=== PATIENT | male | born 1935 | race Caucasian/White ===

== ENCOUNTER 2017-10-20 10:35 | Outpatient (CLI) | payer MEDICARE ==
--- NOTE | 2017-10-20 12:01 | ULT ---
FOCUS ULTRASOUND OF THE RIGHT NECK: 10/20/2017 HISTORY: Lymphadenitis. COMPARISON: None. TECHNIQUE: Multiplanar polanco-scale sonographic imaging of the area of concern obtained in the posterior neck and in the right neck, inferior to the mandible. FINDINGS: There is a nonspecific, heterogeneously hypoechoic solid structure inferior to the mandible, me asuring in the 1.6 x 1.8 cm range. Just adjacent/inferior to this is a 1.6 x 1, oval, solid, hypoech oic structure, suggesting a mildly enlarged node. Additional images demonstrate additional smaller n odes. IMPRESSION: Heterogeneous hypoechoic mass inferior to the mandible with adjacent lymphadenopathy. This mass coul d represent an abnormal submandibular gland. Additional soft tissue mass lesions are possible. Eval uation of this abnormality is suboptimal on focused ultrasound. Recommend CT examination of the neck with intravenous contrast for full assessment. Malignancy is a possibility. CODE T POS: TRAC[facility]
== END 2017-10-20 10:36 | disposition home or self-care (01) ==
LOC: SCSULT 10:35
PROVIDERS: ATTEND Nurse Practitioner Family
DX: I88.9 Nonspecific lymphadenitis, unspecified (principal)
CPT/HCPCS: 76536

== ENCOUNTER 2017-10-25 16:00 | Outpatient (CLI) | payer MEDICARE ==
--- NOTE | 2017-10-25 17:56 | CT ---
CT NECK WITH CONTRAST: 10/25/17 HISTORY: 82-year-old male with "R22.1 - localized swelling, mass and lump, neck." No improvement after one round of antibiotics, Augmentin. FINDINGS: In the superficial lobe of the right parotid gland, more specifically at the right parotid tail, ther e is a solid mass measuring approximately 2 x 1.5 x 2.5 cm. It has moderately low attenuation central component which is suspicious for necrosis. Slightly inferior to that, external to the parotid gland there is a 1.4 x 1.2 x 1.2 cm necrotic lymph node which is located lateral to the right sternocleidomastoid muscle, and therefore is not a level II lymph node. There are scattered shotty nonspecific lymph nodes that are less than 0.5 cm in size bilaterally at b ilateral levels III and IV. There is one particular right retrojugular node that is at the boundary between level III and level I V, which is larger than the others, measuring 0.8 x 0.6 x 1 cm. This lymph node is indeterminate. It is not necrotic. There is heavy atherosclerotic calcification of the bilateral proximal internal carotid arteries, inc luding carotid bulbs. This results in significant stenosis at the origin of the left internal carotid , incompletely assessed. Left parotid gland is unremarkable. The bilateral submandibular, parapharyng eal, tap puller, pharyngeal mucosal, retropharyngeal, and posterior cervical, spaces, demonstrate no obvious major pathology. No obvious thyroid mass. Larynx is grossly unremarkable. IMPRESSION: 1. Solid, necrotic appearing right intraparotid mass at the tail of the parotid gland, suspiciou s for neoplasm. This could either be a primary parotid malignancy or a necrotic metastatic intraparot id lymph node. 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 2. Necrotic metastatic lymph node external and inferior to the right parotid gland. 3. Bilateral carotid atherosclerosis, with left proximal internal carotid stenosis. Code T POS: TRACY
== END 2017-10-25 16:01 | disposition home or self-care (01) ==
LOC: SCSCT 16:00
PROVIDERS: ATTEND Otolaryngology Plastic Surgery within the Head & Neck
DX: R22.1 Localized swelling, mass and lump, neck (principal); C77.0 Secondary and unspecified malignant neoplasm of lymph nodes of head, face and neck; C80.1 Malignant (primary) neoplasm, unspecified; I65.23 Occlusion and stenosis of bilateral carotid arteries
CPT/HCPCS: 70491; 82565

== ENCOUNTER 2017-11-14 12:49 | Outpatient (CLI) | payer MEDICARE ==
--- NOTE | 2017-11-14 16:42 | PET ---
RADIONUCLIDE PET SCAN WITH CT ATTENUATION CORRECTION: HISTORY: Right parotid cancer, initial staging. FINDINGS: Physiologic uptake of radiotracer is present throughout the enteric system and along each urinary tra ct. The lobular mass associated with the tail of the right parotid gland shows increased radiotracer uptake with a maximum SUV of 11.0. The lymph node immediately inferior and medial to the right paroti d tail shows increased uptake with a maximum SUV Q. Clear of 6.8. No other areas of abnormal radiotra cer uptake are apparent. Nondiagnostic CT attenuation correction images show calcification in the arterial structures. Stones within the dependent portion of the gallbladder lumen. Degenerative changes lumbar spine. Diverticula of the colon without adjacent inflammation. IMPRESSION: 1. Hypermetabolic right parotid tail mass with hypermetabolic adjacent right cervical lymph node. No distant metastatic disease is apparent. 2. Atherosclerosis. 3. Cholelithiasis. 4. Diverticulosis POS: [facility]
== END 2017-11-14 12:50 | disposition home or self-care (01) ==
LOC: PET 12:49
PROVIDERS: ATTEND Internal Medicine Hematology & Oncology
DX: C76.0 Malignant neoplasm of head, face and neck (principal); K11.8 Other diseases of salivary glands; I70.90 Unspecified atherosclerosis; K57.90 Diverticulosis of intestine, part unspecified, without perforation or abscess without bleeding; K80.20 Calculus of gallbladder without cholecystitis without obstruction
CPT/HCPCS: 78815; A9552

== ENCOUNTER 2018-02-21 09:02 | Outpatient (CLI) | payer MEDICARE ==
--- NOTE | 2018-02-21 11:03 | CT ---
CT SOFT TISSUE NECK: History: Squamous cell carcinoma of neck. Restaging. Technique: Contrast enhanced CT imaging of the soft tissue neck obtained. Comparison: 10-25-17 FINDINGS: There is marked reduction of the right parotid mass. Previously this lesion measured approximately 1. 4 x 2.0 cm. Now it is decreased in size measuring 6.5 x 11.9 mm. No definite evidence of lymphadenopathy is seen otherwise. No other mass lesions seen. Bilateral distal common carotid and internal carotid artery vascular calcifications are seen. Calcifications also seen in the coronary and mitral annulus. IMPRESSION: No evidence of newly developed lesions. Right parotid lesion is significantly decreased in size when compared to previous comparison exam. POS: [facility]
[2018-02-21] MEDS ORDERED: Iopamidol 370 76% 100 ML VIAL ONE (11:07)
== END 2018-02-21 09:03 | disposition home or self-care (01) ==
LOC: CT 09:02
PROVIDERS: ATTEND Radiology Radiation Oncology
DX: C77.0 Secondary and unspecified malignant neoplasm of lymph nodes of head, face and neck (principal)
CPT/HCPCS: 70491; 82565

== ENCOUNTER 2018-05-18 09:23 | Outpatient (CLI) | payer MEDICARE ==
[~2018-05-18 09:23] MED LIST: Iopamidol 370 76% 100 ML VIAL ONE
--- NOTE | 2018-05-18 12:24 | CT ---
CT NECK SOFT TISSUES CONTRAST ENHANCED: HISTORY: Swelling, anterior neck, from chin to clavicle, for three days. The patient has a history of cancer of the neck, below her right jaw. COMPARISON: 02/21/2018 TECHNIQUE: Contrast enhanced CT images of the soft tissue neck obtained. RADIOGRAPHIC FINDINGS: There is some atrophy of the right parotid gland. No definite evidence of right parotid mass is seen . Post surgical changes seen at the inferior aspect of the right parotid gland. The left parotid gl and is unremarkable. No definite evidence of lymphadenopathy is seen. Atherosclerotic calcification is seen at the distal aspect of both common carotid arteries, extending into the proximal ICA. There is approximately 80% distal left CCA and proximal left ICA disease. M oderate right distal CCA and proximal right ICA stenosis is also seen. IMPRESSION: 1. Bilateral common and proximal internal carotid artery carotid disease, worse on the left than on the right. 2. Post surgical changes seen in the right parotid gland. POS: TRACY
== END 2018-05-18 09:24 | disposition home or self-care (01) ==
LOC: SCSCT 09:23
PROVIDERS: ATTEND Otolaryngology Plastic Surgery within the Head & Neck
DX: R22.1 Localized swelling, mass and lump, neck (principal); I77.9 Disorder of arteries and arterioles, unspecified
CPT/HCPCS: 70491; 82565

== ENCOUNTER 2019-06-11 05:50 | Day surgery (SDC) | payer MEDICARE ==
--- NOTE | 2019-06-11 09:20 | OP ---
DATE OF PROCEDURE: 06/11/2019 REFERRING PHYSICIAN: Fabrice Denton MD [employer] COACH SURGEON: None. PROCEDURE PERFORMED: Esophagogastroduodenoscopy with biopsies and esophageal dilation. INDICATIONS: 1. Dysphagia, chronic, nonprogressive, in the context of prior radiation therapy for neck cancer. 2. Epigastric pain, episodic. MEDICATIONS: See Anesthesia record. FINDINGS: After discussion of the risks, benefits, and alternatives of the procedure, informed consent was obtained and witnessed. Pre-endoscopic cardiopulmonary examination was satisfactory. Time-out was performed before sedation was achieved. Sedation was achieved with Anesthesia assistance in the endoscopy unit. A Pentax adult upper endoscope was placed into the oropharynx and passed through the cricopharyngeus under direct visualization. The esophageal mucosa appeared normal throughout with a normal-appearing Z-line. There was no endoscopic abnormality to explain the patient's dysphagia symptoms. The endoscope was advanced into the stomach. Forward and retroflexed views of the entire gastric mucosa were obtained. There was moderate erosive gastritis in a patchy distribution involving the greater curvature of the gastric body as well as the gastric antrum. There are multiple small shallow erosions including one larger erosion with some heme staining, but no active bleeding. Biopsies were obtained from the gastric antrum and body to rule out H pylori infection. The endoscope was advanced through the pylorus and into the first and second portions of the duodenum, which were normal. At this point, the endoscope was withdrawn back into the stomach. A Savary spring tipped guidewire was passed through the accessory port with the tip placed in the antrum. The endoscope was removed leaving the guidewire in place. A single dilation was performed using an 18-mm Savary dilator with mild resistance. The dilator and guidewire were then both removed. The esophagus was then reintubated for reexamination and there was no mucosal disruption visualized. The endoscope was then completely withdrawn and the patient allowed to recover. The patient tolerated the procedure well. There were no immediate postprocedure complications. IMPRESSION: 1. Moderate erosive gastritis, biopsied to rule out H pylori. 2. Normal esophagus, with no endoscopic abnormality to explain the patient's dysphagia. Single Savary dilation performed to 18 mm empirically. RECOMMENDATION: 1. Follow up pathology and gastric biopsies. 2. Pantoprazole 40 mg twice daily for the next two months. 3. Follow up in the GI clinic in 6-8 weeks. 4. If H pylori is present, treat with triple therapy and confirm eradication. Job ID: [id number]
[2019-06-11] MEDS ORDERED: PROPOFOL 200 MG/20 ML VIAL ONE (14:35)
[2019-06-11] MEDS ORDERED: Lidocaine 1% PF 5 ML VIAL ONE (14:35)
== END 2019-06-11 09:50 | disposition home or self-care (01) ==
LOC: SDC 05:50
PROVIDERS: ATTEND Internal Medicine
PROC: 0DB68ZX Excision of Stomach, Via Natural or Artificial Opening Endoscopic, Diagnostic (ICD-10-PCS; principal; 2019-06-11)
PROC: 0D758ZZ Dilation of Esophagus, Via Natural or Artificial Opening Endoscopic (ICD-10-PCS; 2019-06-11)
DX: K29.50 Unspecified chronic gastritis without bleeding (principal); R13.10 Dysphagia, unspecified; Z79.82 Long term (current) use of aspirin; Z79.899 Other long term (current) drug therapy
CPT/HCPCS: 88305; 88312; J2001; J2704

== ENCOUNTER 2019-09-28 09:45 | Outpatient (CLI) | payer MEDICARE ==
--- NOTE | 2019-09-28 12:13 | PET ---
Radionucleotide PET with CT attenuation correction HISTORY: Head and neck cancer. C14.8. Initial staging. FINDINGS: Physiologic uptake of radiotracer throughout the enteric system and along each urinary trac t. Hypermetabolic activity associated with the large left parotid gland mass shows max SUV 16.4. No abnormal uptake is seen along the cervical lymph node chains, mediastinum, or other area of likely metastatic involvement. There is a small focus of markedly increased activity at the rectosigmoid junction of the lower colon , max SUV 19.4. A mass at this location is not well delineated on CT imaging. Nondiagnostic CT attenuation correction images show scattered areas of parenchymal lung scarring, pilo cified granulomata, and emphysematous change. Hyperdense stones are present within the dependent portion of the gallbladder lumen. Prominent calcification throughout the arterial structures. Diverticula arise from the colon without adjacent inflammation. Bilateral pars interarticularis defects at the lumbosacral junction of the spine. IMPRESSION : Hypermetabolic left parotid neoplasm. No evidence of metastatic disease. Small markedly hypermetabolic focus associated with the rectosigmoid junction. Please correlate with endoscopic evaluation. Cholelithiasis. Prominent atherosclerosis. Diverticulosis.
== END 2019-09-28 09:46 | disposition home or self-care (01) ==
LOC: PET 09:45
PROVIDERS: ATTEND Internal Medicine Hematology & Oncology
DX: C07 Malignant neoplasm of parotid gland (principal); C14.8 Malignant neoplasm of overlapping sites of lip, oral cavity and pharynx; R94.8 Abnormal results of function studies of other organs and systems; K80.20 Calculus of gallbladder without cholecystitis without obstruction; K57.30 Diverticulosis of large intestine without perforation or abscess without bleeding; I70.90 Unspecified atherosclerosis
CPT/HCPCS: 78815; A9552

== ENCOUNTER 2019-10-15 12:19 | Outpatient (CLI) | payer MEDICARE, OTHER ==
--- NOTE | 2019-10-15 12:47 | RAD ---
EXAM: Chest 2 views: HISTORY: Preoperative radiograph COMPARISON: 10/03/2016 FINDINGS: There is a normal-sized cardiomediastinal silhouette. Atherosclerotic calcifications are seen in the aorta. There is no evidence of consolidation, mass, or pleural effusion. The bones are unremarkable. IMPRESSION: No evidence of acute cardiopulmonary disease
[2019-10-15 14:16] LABS: Hemoglobin 13.6 g/dL (14.0-18.0); Mean Corpuscular HGB CONC 32.5 g/dL (32.0-36.0); Mean Corpuscular Volume 98.5 fL (78.0-98.0); Mean Platelet Volume 7.6 fL (7.4-10.4); Platelet Count 159 thou/uL (130-400); RBC Distribution Width 12.6 % (11.5-14.5); Red Blood Cell (RBC) Count 4.24 mill/uL (4.70-6.10); White Blood Cell (WBC) Count 18.6 thou/uL (4.8-10.8)
[2019-10-15 14:36] LABS: Anion Gap 13 mmol/L (10-20); BUN (Urea Nitrogen) 26 mg/dL (8.4-25.7); Calc. Creatinine Clearance 0 mL/min (70-130); Calcium 8.9 mg/dL (7.8-10.44); Carbon Dioxide 25 mmol/L (23-31); Chloride 103 mmol/L (98-107); Estimated GFR-MDRD 57; Glucose 95 mg/dL (83-110); Sodium 137 mmol/L (136-145)
[2019-10-15 14:51] LABS: Band 19 % (5-11); Dohle Bodies SLIGHT; Eosinophils 5 % (0-10); Lymphocytes 3 % (21-51); MDiff Complete? YES; Neutrophil 72 % (42-75); Platelet Morphology Comment Appears Adequate; RBC Morphology Normal; Toxic Granulation SLIGHT
[2019-10-16 13:13] LABS: SARS-CoV-2 MS2 Positive; SARS-CoV-2 N Gene Negative; SARS-CoV-2 S Gene Negative; SARS-CoV-2 orf1ab Negative
== END 2019-10-15 12:20 | disposition home or self-care (01) ==
LOC: LABBT 12:19
PROVIDERS: ATTEND Specialist
DX: Z01.818 Encounter for other preprocedural examination (principal); Z11.59 Encounter for screening for other viral diseases; C80.1 Malignant (primary) neoplasm, unspecified
CPT/HCPCS: 71046; 80048; 85025; U0003; 87635

== ENCOUNTER 2019-10-18 06:04 | Day surgery (SDC) | payer MEDICARE ==
[2019-10-15 12:45] VITALS: BMI 29.9
[2019-10-18] MEDS ORDERED: Acetaminophen 500 MG TAB ONE (06:15)
[2019-10-18] MEDS ORDERED: Sodium Chloride 0.9% 30 ML ONE (06:48)
[2019-10-18] MEDS ORDERED: Bupivacaine 0.25% HCL 30 ML VIAL ONE (06:48)
[2019-10-18] MEDS ORDERED: Lidocaine 1% w/Epinephrine 1:100K 20 ML VIAL ONE (06:48)
[2019-10-18] MEDS ORDERED: Ketorolac Tromethamine 30 MG/ML VIAL ONE (06:56)
[2019-10-18] MEDS ORDERED: Fentanyl 100 MCG/2 ML VIAL ONE (07:00)
[2019-10-18] MEDS ORDERED: Midazolam HCl 2 mg/2 ml Vial ONE (07:00)
[2019-10-18] MEDS ORDERED: Propofol 500 MG/50 ML VIAL ONE (07:04)
--- NOTE | 2019-10-18 10:05 | RAD ---
PORTABLE CHEST 1 VIEW: DATE: 10/18/2019. TIME: 9:31 AM. HISTORY: Post MediPort placement, head and neck cancer. COMPARISON: 10/15/2019. FINDINGS: There has been interval placement of a right subclavian Port-A-Cath with tip I the projection of the SVC. No pneumothorax is seen. Chronic parenchymal changes are again noted. The liriano size is stable . The aorta is tortuous. IMPRESSION: No acute process. POS: [facility]
--- NOTE | 2019-10-18 11:09 | OP ---
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 OPERATION PERFORMED: Placement of right subclavian standard-sized power compatible MediPort. ANESTHESIA: Total intravenous anesthesia with local using a mixture of 1% lidocaine with epinephrine and 0.25% Marcaine. INDICATIONS: The patient is an 84-year-old white male. He presents with a malignancy of the head and neck. He has already undergone one round of chemotherapy. MediPort is requested for chemotherapy administration. DESCRIPTION OF OPERATION: Informed consent was obtained. The patient was taken to the operating room where total intravenous anesthesia was obtained with the patient in supine position. Right periclavicular area was prepped with ChloraPrep and draped in sterile fashion. Local anesthetic was infiltrated and a large-gauge needle was passed under the clavicle in the subclavian vein. Guidewire was passed through the needle and fluoroscopically confirmed to enter the superior vena cava. Additional local anesthetic was infiltrated and transverse incision was created based on needle insertion site. A subcutaneous pocket was dissected inferiorly. Introducer dilator was passed over the guidewire under fluoroscopic guidance. The guidewire and dilator were removed, and the catheter was passed through the introducer. The tip of the catheter was positioned at the atriocaval junction and the catheter was trimmed to the appropriate length and secured to the locking hub of the MediPort. The port was then placed in the subcutaneous pocket where it was secured to the pectoral fascia with 2 interrupted sutures of 3-0 Prolene. The incision was then closed in layers with 3-0 and 4-0 Monocryl. Additional local anesthetic was infiltrated. The port was cannulated with a Church needle and it aspirated blood freely and was flushed with heparinized saline. Dermabond was placed externally on the skin incision. There were no complications. Blood loss was negligible. The patient tolerated the procedure well and was taken to recovery room in stable condition. FINDINGS: I selected a standard-sized MediPort secondary to his body habitus. This was placed in the right subclavian vein uneventfully. Fluoroscopy was used throughout the procedure. There were no complications. The patient tolerated the procedure well. Job ID: [id number]
[2019-10-18] MEDS ORDERED: Ondansetron PF 4 MG/2 ML Vial ONE (14:57)
[2019-10-18] MEDS ORDERED: PROPOFOL 200 MG/20 ML VIAL ONE (14:57)
[2019-10-18] MEDS ORDERED: EPHEDRINE 25 MG/5 ML SYRINGE ONE (14:57)
--- NOTE | 2019-10-18 18:05 | EKG ---
Test Reason : PREOP Blood Pressure : / mmHG Vent. Rate : 065 BPM Atrial Rate : 065 BPM P-R Int : 304 ms QRS Dur : 086 ms QT Int : 414 ms P-R-T Axes : -02 -27 013 degrees QTc Int : 430 ms Sinus rhythm with 1st degree A-V block Minimal voltage criteria for LVH, may be normal variant Borderline ECG No previous ECGs available Confirmed by DR. Louise SENIOR ([id number]) on 10/18/2019 6:05:13 PM Referred By: FREEMAN Confirmed By:DR. Louise SENIOR
== END 2019-10-18 10:50 | disposition home or self-care (01) ==
LOC: SDC 06:04
PROVIDERS: ATTEND Specialist
PROC: 02HV33Z Insertion of Infusion Device into Superior Vena Cava, Percutaneous Approach (ICD-10-PCS; principal; 2019-10-18)
PROC: B518ZZA Fluoroscopy of Superior Vena Cava, Guidance (ICD-10-PCS; 2019-10-18)
PROC: 0JH60WZ Insertion of Totally Implantable Vascular Access Device into Chest Subcutaneous Tissue and Fascia, Open Approach (ICD-10-PCS; 2019-10-18)
DX: C07 Malignant neoplasm of parotid gland (principal); E78.5 Hyperlipidemia, unspecified; M19.90 Unspecified osteoarthritis, unspecified site; I10 Essential (primary) hypertension; E03.9 Hypothyroidism, unspecified; G47.33 Obstructive sleep apnea (adult) (pediatric); Z79.899 Other long term (current) drug therapy
CPT/HCPCS: 36561; 71045; 93005; C1788; 93010; J0690; J1642; J1885; J2250; J2405; J2704; J3010; S0020

== ENCOUNTER 2019-11-02 05:58 | Outpatient (CLI) | payer MEDICARE, OTHER ==
[2019-11-03 12:15] LABS: SARS-CoV-2 MS2 Positive; SARS-CoV-2 N Gene Negative; SARS-CoV-2 S Gene Negative; SARS-CoV-2 orf1ab Negative
== END 2019-11-02 05:59 | disposition home or self-care (01) ==
LOC: LABBT 05:58
PROVIDERS: ATTEND Internal Medicine
DX: Z01.812 Encounter for preprocedural laboratory examination (principal); Z11.59 Encounter for screening for other viral diseases; Z12.11 Encounter for screening for malignant neoplasm of colon; R93.5 Abnormal findings on diagnostic imaging of other abdominal regions, including retroperitoneum; Z86.010 Personal history of colon polyps
CPT/HCPCS: 87635; U0003

== ENCOUNTER 2019-11-06 07:45 | Day surgery (SDC) | payer MEDICARE ==
[2019-10-30 11:12] VITALS: BMI 32.1
--- NOTE | 2019-11-06 10:44 | OP ---
DATE OF PROCEDURE: 11/06/2019 SOCIAL WORK MSW SURGEON: None. PROCEDURE PERFORMED: Colonoscopy with snare polypectomy. INDICATIONS: 1. Abnormal PET scan, demonstrating a hypermetabolic focus at the rectosigmoid junction. 2. Personal history of colon polyps, with last colonoscopy in 2011. MEDICATIONS: See Anesthesia record. FINDINGS: After discussion of the risks, benefits, and alternatives of the procedure, informed consent was obtained and witnessed. Pre-endoscopic cardiopulmonary examination was satisfactory. Time-out was performed before sedation was achieved. Sedation was achieved with Anesthesia assistance in the endoscopy unit. Digital rectal exam was performed, which was unremarkable except for a few small external hemorrhoidal skin tags. A Pentax adult colonoscope was inserted into the anus and passed forward to the cecum in the usual fashion. The cecal base was identified by the appendiceal orifice as well as the ileocecal valve. The terminal ileum was not intubated. The colonoscope was slowly withdrawn in a gradual and circumferential manner with careful examination of the entire colonic mucosa. The quality of the prep was good. There was diverticulosis scattered throughout the left side of the colon with no evidence of any mucosal inflammation. At the rectosigmoid junction, there was a single semipedunculated polyp measuring about 4 mm in diameter. This was completely removed with hot snare and retrieved for pathology. Retroflexion in the rectum demonstrated internal hemorrhoids. The colonoscopy was otherwise unremarkable. The colonoscope was completely withdrawn and the patient allowed to recover. The patient tolerated the procedure well. There were no immediate postprocedure complications. IMPRESSION: 1. A 4 mm semipedunculated polyp in the rectosigmoid colon, completely removed with hot snare and retrieved for pathology. 2. Left-sided colonic diverticulosis. 3. Internal hemorrhoids. 4. Otherwise normal colonoscopy to the cecum. RECOMMENDATIONS: 1. Follow up pathology on the rectosigmoid polyp. Expect this will be benign. 2. No plan for repeat colonoscopy, due to the patient's age. 3. The patient can follow up with me in the GI Clinic as needed. Job ID: [id number]
[2019-11-06] MEDS ORDERED: PROPOFOL 200 MG/20 ML VIAL ONE (12:34)
== END 2019-11-06 11:25 | disposition home or self-care (01) ==
LOC: SDC 07:45
PROVIDERS: ATTEND Internal Medicine
PROC: 0DBN8ZX Excision of Sigmoid Colon, Via Natural or Artificial Opening Endoscopic, Diagnostic (ICD-10-PCS; principal; 2019-11-06)
DX: D12.7 Benign neoplasm of rectosigmoid junction (principal); K57.30 Diverticulosis of large intestine without perforation or abscess without bleeding; K64.4 Residual hemorrhoidal skin tags; K64.8 Other hemorrhoids; G47.33 Obstructive sleep apnea (adult) (pediatric); M19.90 Unspecified osteoarthritis, unspecified site; E07.9 Disorder of thyroid, unspecified; Z86.010 Personal history of colon polyps; Z79.82 Long term (current) use of aspirin; Z79.899 Other long term (current) drug therapy
CPT/HCPCS: 88305; J2704

== ENCOUNTER 2019-11-08 12:38 | Emergency (ER) | payer MEDICARE ==
--- NOTE | 2019-11-08 14:40 | CT ---
Exam: Lumbar spine CT without contrast HISTORY: Parotid gland cancer. Unknown metastases. Compression fracture at L3. COMPARISON: None Correlation: Pet imaging 09/28/2019 FINDINGS: Diffuse bone demineralization. Adequate attenuation the paraspinal muscles, alimentary canal and visualized solid organs. Diverticul osis, without evidence of diverticulitis Bilateral pars defects at L5 with associated 5.8 mm of anterolisthesis Incompletely evaluated severe compression fracture at T11. Moderate to severe compression fracture at L1 without retropulsion. Acute moderate compression fracture at L3 with minimal perivertebral posttraumatic changes. Vacuum disc phenomenon at L2 to-L3. Limited evaluation the contents of the central spinal canal and neural foramina due to technique T12-L1: No significant central canal stenosis or significant neural foraminal narrowing L1-L2: Broad-based disc bulge. Mild ligament flavum thickening and facet hypertrophy. Mild central ca nal stenosis. Mild bilateral neural foraminal narrowing L2-L3: Broad-based disc bulge, ligament flavum thickening and facet hypertrophy. Moderate to severe c anal stenosis. Moderate to severe right and moderate left neural foraminal narrowing L3-L4: Broad-based disc bulge, ligament flavum thickening and facet hypertrophy result in mild centra l canal stenosis. Mild bilateral neural foraminal narrowing L1 4-L5: Broad-based disc bulge, ligament flavum thickening and facet hypertrophy result in moderate central canal stenosis. Moderate bilateral neural foraminal narrowing L5-S1: Severe loss of disc space height. Endplate sclerosis. No significant central canal stenosis. M ild to moderate bilateral neural foraminal narrowing IMPRESSION: 1. Multilevel degenerative changes of the lumbar spine as described above. 2. Diffuse bony mineralization. Multiple compression fractures at T11, L1 and L3. Osteoporotic fractu res are favored. The L3 fracture is noted on PET imaging from 09/28/2019, without significant change 3. Grade 1 anterolisthesis of L5 upon S1. Associated bilateral pars defects (spondylolysis) Transcribed Date/Time: 11/08/2019 3:08 PM
== END 2019-11-08 14:55 | disposition home or self-care (01) ==
LOC: ERS 12:38
DX: M48.56XA Collapsed vertebra, not elsewhere classified, lumbar region, initial encounter for fracture (principal); E78.5 Hyperlipidemia, unspecified; E03.9 Hypothyroidism, unspecified; Z79.899 Other long term (current) drug therapy
CPT/HCPCS: 72131

== ENCOUNTER 2019-11-22 07:25 | Outpatient (CLI) | payer MEDICARE ==
--- NOTE | 2019-11-22 10:45 | PET ---
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 C07, C14.8. Evaluate treatment response. COMPARISON: 09/28/2019 TECHNIQUE: IV injection of F-18 fluorodeoxyglucose (FDG) dose: 10.3 mCi. PET scan and attenuation correction CT performed from skull base to proximal thighs. PET scan and attenuation correction CT thinner slices performed through head and neck. FINDINGS: SUV (standard uptake values) numbers given are maximum SUVs. QCLR used. The previously demonstrated approximately 2.5 x 2 x 2 cm mass straddling the superficial lobe of the left parotid gland and the subcutaneous fat in the preauricular region, has significantly decreased in size. On the nondiagnostic attenuation correction CT, there is a small focal 1 x 0.7 cm residual d ensity in that location now which is just under the threshold for significant hypermetabolic activity, currently 2.3 SUV. There is no hypermetabolic cervical lymphadenopathy. Contralateral right parotid gland is absent. Right subclavian implantable vascular access port distal tip at SVC. Chronic interstitial lung disease identified diffusely bilaterally. Several calcified gallstones in proximal gallbladder body. No signs of acute cholecystitis. Extensive descending and sigmoid colonic diverticulosis without diverticulitis. The previously seen small focus of increased uptake at the rectosigmoid junction, is no longer presen t. No suspicious hypermetabolic activity within the chest, abdomen, or pelvis. Bilateral gynecomastia. IMPRESSION: 1) dramatic interval shrinkage of mass at anterior, preauricular portion of superficial lobe of left parotid gland, no longer hypermetabolic. 2.) No evidence of metastatic disease. 3) chronic interstitial lung disease. 4) colonic diverticulosis without diverticulitis. 5) interval resolution of the previously noted FDG-avid focus at rectosigmoid junction. 6) cholelithiasis.
== END 2019-11-22 07:26 | disposition home or self-care (01) ==
LOC: PET 07:25
PROVIDERS: ATTEND Internal Medicine Hematology & Oncology
DX: C76.0 Malignant neoplasm of head, face and neck (principal); K11.8 Other diseases of salivary glands; J84.9 Interstitial pulmonary disease, unspecified; K57.30 Diverticulosis of large intestine without perforation or abscess without bleeding; K80.20 Calculus of gallbladder without cholecystitis without obstruction
CPT/HCPCS: 78815; A9552

== ENCOUNTER 2020-04-02 08:44 | Outpatient (CLI) | payer MEDICARE ==
--- NOTE | 2020-04-02 09:13 | RAD ---
XR Knee Rt 3 View HISTORY: Right knee pain FINDINGS: No fracture or dislocation is identified. Degenerative changes are seen manifested by osteophyte form ation and joint space narrowing, most prominent in the medial tibiofemoral compartment. Vascular calcifications are present.
[2020-04-02 11:49] LABS: ALT (SGPT) 11 U/L (8-55); AST (SGOT) 18 U/L (5-34); Albumin 4.3 g/dL (3.4-4.8); Alkaline Phosphatase 51 U/L (40-110); Anion Gap 13 mmol/L (10-20); BUN (Urea Nitrogen) 22 mg/dL (8.4-25.7); Bilirubin, Total 0.5 mg/dL (0.2-1.2); Calc. Creatinine Clearance 0 mL/min (70-130); Calcium 9.4 mg/dL (7.8-10.44); Carbon Dioxide 31 mmol/L (23-31); Cardiac Risk 2.7 (Less than 4.5); Chloride 104 mmol/L (98-107); Cholesterol 165 mg/dl (< 200 Desired); Estimated GFR-MDRD 54; Globulin 3.1 g/dL (2.4-3.5); Glucose 102 mg/dL (83-110); HDL Cholesterol 61 mg/dL (>60 Neg Risk); LDL Cholesterol, Calculated 85 mg/dL; Potassium 4.5 mmol/L (3.5-5.1); Protein, Total 7.4 g/dL (5.8-8.1); Sodium 143 mmol/L (136-145); Triglycerides 96 mg/dL (Less than 150)
[2020-04-02 12:08] LABS: Free T4 (Free Thyroxine) 0.72 ng/dL (0.70-1.48)
[2020-04-02 12:09] LABS: Thyroid Stimulating Hormone 11.154 uIU/mL (0.35-4.94)
[2020-04-02 12:10] LABS: PSA-Asymptomatic (SCREENING) 0.72 ng/mL (0-4.0)
== END 2020-04-02 08:45 | disposition home or self-care (01) ==
LOC: SCSRAD 08:44
PROVIDERS: ATTEND Family Medicine
DX: M25.561 Pain in right knee (principal); Z12.5 Encounter for screening for malignant neoplasm of prostate; E03.9 Hypothyroidism, unspecified; E78.5 Hyperlipidemia, unspecified; D75.89 Other specified diseases of blood and blood-forming organs
CPT/HCPCS: 36415; 80053; 80061; 82607; 82746; 84439; 84443; 84481; G0103

== ENCOUNTER 2020-09-01 09:04 | Outpatient (CLI) | payer MEDICARE ==
[2020-09-01] MEDS ORDERED: Iopamidol-370 76% 500 ML 1 ML ONE (10:35)
== END 2020-09-01 09:05 | disposition home or self-care (01) ==
LOC: BICCT 09:04
PROVIDERS: ATTEND Internal Medicine Hematology & Oncology
DX: C07 Malignant neoplasm of parotid gland (principal); C14.8 Malignant neoplasm of overlapping sites of lip, oral cavity and pharynx; M80.08XS Age-related osteoporosis with current pathological fracture, vertebra(e), sequela; Z90.89 Acquired absence of other organs
CPT/HCPCS: 70491; 71260; Q9967

== ENCOUNTER 2020-11-05 09:28 | Outpatient (CLI) | payer MEDICARE | END 2020-11-05 09:29 | disposition home or self-care (01) | LOC: BICRAD 09:28 | PROVIDERS: ATTEND Radiology Radiation Oncology | DX: C76.0 Malignant neoplasm of head, face and neck (principal); M54.6 Pain in thoracic spine; M54.5 Low back pain; M47.816 Spondylosis without myelopathy or radiculopathy, lumbar region; M43.16 Spondylolisthesis, lumbar region; S22.080D Wedge compression fracture of T11-T12 vertebra, subsequent encounter for fracture with routine healing; S32.010D Wedge compression fracture of first lumbar vertebra, subsequent encounter for fracture with routine healing; M47.814 Spondylosis without myelopathy or radiculopathy, thoracic region | CPT/HCPCS: 72072; 72100 ==

== ENCOUNTER 2021-03-03 09:16 | Outpatient (CLI) | payer MEDICARE ==
[2021-03-03] MEDS ORDERED: Iopamidol-370 76% 500 ML 1 ML ONE (10:28)
== END 2021-03-03 09:17 | disposition home or self-care (01) ==
LOC: BICCT 09:16
PROVIDERS: ATTEND Internal Medicine Hematology & Oncology
DX: C07 Malignant neoplasm of parotid gland (principal); C14.8 Malignant neoplasm of overlapping sites of lip, oral cavity and pharynx; M79.89 Other specified soft tissue disorders; I51.7 Cardiomegaly; K80.20 Calculus of gallbladder without cholecystitis without obstruction; R91.8 Other nonspecific abnormal finding of lung field
CPT/HCPCS: 70491; 71260; 82565; Q9967

== ENCOUNTER 2021-12-28 08:45 | Outpatient (CLI) | payer MEDICARE, OTHER | END 2021-12-28 08:46 | disposition home or self-care (01) | LOC: SCSRAD 08:45 | PROVIDERS: ATTEND Family Medicine | DX: M54.9 Dorsalgia, unspecified (principal); M47.814 Spondylosis without myelopathy or radiculopathy, thoracic region; M47.816 Spondylosis without myelopathy or radiculopathy, lumbar region; M43.8X6 Other specified deforming dorsopathies, lumbar region | CPT/HCPCS: 72072; 72100 ==